=== PATIENT | female | born 1995 | race Caucasian/White ===

== ENCOUNTER 2018-09-17 09:45 | Emergency (ER) | payer BC ==
[~2018-09-17] VITALS: Ht 160 cm; Wt 51.3 kg
--- NOTE | 2018-09-17 10:18 | NUR ---
PATIENT PRESENTS TO ED TODAY FOR LT FLANK PAIN WITH NAUSEA, DIAGNOSED WITH KIDNEY STONE ON 09/09, LITHOTRIPSY PERFORMED ON 09/12, NO STONE FOUND PER MD, STENT PLACED AT THAT TIME, STENT REMOVED ON 09/16. UROLOGIST RECOMMENDED TO BE SEEN IF PAIN PERSISTS PAST 12 HOURS, PAIN NOT CONTROLLED WITH PAIN MEDICATION. PROCEDURE COMPLETED AT [facility] WHO RECOMMENDED PATIENT BE SEEN AT HOSPITAL TODAY. CALL LIGHT WITHIN REACH, NADN. SO AT BEDSIDE, AWAITING MD ORDERS.
--- NOTE | 2018-09-17 10:22 | NUR ---
PATIENT REPORTS LAST BM 1 WEEK AGO, NO SUCCESS WITH LAXATIVES.
[2018-09-17] MEDS ORDERED: KETOROLAC 30 MG/1 ML IVPush ONE (10:30)
[2018-09-17] MEDS ORDERED: MORPHINE SULFATE 4 MG/ML, 1ML IVPush PRN (10:30)
--- NOTE | 2018-09-17 10:35 | NUR ---
US AT BEDSIDE.
[2018-09-17] MEDS ORDERED: KETOROLAC 30 MG/1 ML ONE (10:37)
[2018-09-17] MEDS ORDERED: MORPHINE SULFATE 4 MG/ML, 1ML ONE (10:37)
[2018-09-17] MEDS ORDERED: ONDANSETRON 2MG/ML, 2ML ONE (10:37)
[2018-09-17 10:51] LABS: BASOPHILS # (AUTO) 0.03 x10^3/uL (0-0.1); BASOPHILS % (AUTO) 0 % (0-1); EOSINOPHILS # (AUTO) 0.14 x10^3/uL (0-0.4); EOSINOPHILS % (AUTO) 2 % (1-7); LYMPHOCYTES # (AUTO) 1.49 x10^3/uL (1-3.4); LYMPHOCYTES % (AUTO) 17 % (22-44); MD NO; MEAN CORPUSCULAR HEMOGLOBIN 29.6 pg (27.0-34.8); MEAN CORPUSCULAR HGB CONC 33.3 g/dL (32.4-35.8); MEAN CORPUSCULAR VOLUME 88.8 fL (80-100); MEAN PLATELET VOLUME 7.1 fL (7.4-10.4); MONOCYTES # (AUTO) 0.65 x10^3/uL (0.2-0.8); MONOCYTES % (AUTO) 8 % (2-9); NEUTROPHILS # (AUTO) 6.41 x10^3/uL (1.8-6.8); NEUTROPHILS % (AUTO) 74 % (42-75); PLATELET COUNT 330 x10^3/uL (130-400); RED BLOOD COUNT 4.23 x10^6/uL (3.82-5.3); RED CELL DISTRIBUTION WIDTH 12.7 % (9.6-15.2)
[2018-09-17 10:52] LABS: CULTURE INDICATED? YES; MICROSCOPIC INDICATED
--- NOTE | 2018-09-17 10:52 | NUR ---
XRAY AT BEDSIDE.
[2018-09-17] MEDS ORDERED: ONDANSETRON ODT 4 MG PO ONE (11:00)
[2018-09-17] MEDS ORDERED: ONDANSETRON 2MG/ML, 2ML IVPush ONE (11:00)
[2018-09-17 11:02] LABS: ALBUMIN 3.9 g/dL (3.4-5.0); ANION GAP 5 mmol/L (5-15); CALCIUM 8.9 mg/dL (8.5-10.1); CHLORIDE 107 mmol/L (98-107)
[2018-09-17 11:04] LABS: CREATININE 0.97 mg/dL (0.55-1.02)
--- NOTE | 2018-09-17 11:24 | NUR ---
RESULTS BACK, CHART UP FOR RECHECK.
--- NOTE | 2018-09-17 11:40 | NUR ---
NEW ORDERS FOR CT, PATIENT/FAMILY UPDATED ON POC. PATIENT SITTING IN GURNEY SPEAKING WITH SO AT BEDSIDE, MARYELLEN.
--- NOTE | 2018-09-17 12:41 | NUR ---
NEW ORDERS FOR 2ND UA DUE TO CONTAMINATION, PATIENT AMB WITH STEADY GAIT, UA COLLECTED AND SENT TO LAB. PATIENT IN CT AT THIS TIME.
[2018-09-17 13:05] VITALS: BP 90/57
[2018-09-17 13:12] LABS: MICROSCOPIC INDICATED
[2018-09-17 13:13] LABS: CULTURE INDICATED? YES
--- NOTE | 2018-09-17 13:49 | NUR ---
Discharge instructions discussed with patient including when to return to emergency department. Prescriptions provided to patient with instruction for use, patient verbalizes understanding, questions answered. Patient instructed not to drive while taking narcotics, verbalizes understanding, significant other at bedside at time of discharge. Patient dresses independently, ambulates with steady gait.
== END 2018-09-17 13:52 | disposition home or self-care (01) ==
LOC: ED 11:32
DX: N13.30 Unspecified hydronephrosis (principal); R10.9 Unspecified abdominal pain
CPT/HCPCS: 36415; 74176; 76770; 80048; 81001; 82040; 84703; 85025; 87086; 96374; 96375; 99284; J1885; J2270; J2405